=== PATIENT | male | born 1990 | race Caucasian/White ===

== ENCOUNTER 2023-01-24 18:28 | Emergency (ER) | payer SELFPAY ==
[2023-01-24 19:26] LABS: BASOPHILS PERCENT AUTO 0.6 % (0.0-1.5); EOSINOPHILS ABSOLUTE AUTO 0.1 K/uL (0.0-0.7); EOSINOPHILS PERCENT AUTO 2.6 % (0.0-7.0); HEMATOCRIT 44.9 % (38.0-50.0); HEMOGLOBIN 15.7 g/dL (13.0-17.0); LYMPHOCYTES ABSOLUTE AUTO 1.4 K/uL (0.6-2.4); LYMPHOCYTES PERCENT AUTO 29.9 % (16.0-40.0); MEAN CORPUSCULAR HEMOGLOBIN 30.7 pg (27.0-32.0); MEAN CORPUSCULAR VOLUME 87.9 fL (80.0-98.0); MONOCYTES ABSOLUTE AUTO 0.3 K/uL (0.0-0.8); MONOCYTES PERCENT AUTO 6.6 % (0.0-15.0); NEUTROPHILS ABSOLUTE AUTO 2.8 K/uL (1.4-5.7); NEUTROPHILS PERCENT AUTO 60.3 % (48.0-80.0); NRBC ABSOLUTE 0 K/uL; PLATELET COUNT,PLT 246 K/uL (150-400); RED BLOOD CELL COUNT 5.11 M/uL (4.50-5.90); WHITE BLOOD CELL COUNT,WBC 4.68 K/uL (4.0-11.0)
[2023-01-24 20:06] LABS: A/G RATIO 1.3 (0.9-1.6); ALBUMIN 4.3 g/dL (3.4-5.0); BILIRUBIN TOTAL 0.6 mg/dL (0.2-1.0); CALCIUM 8.8 mg/dL (8.5-10.1); CARBON DIOXIDE,CO2 31.1 mmol/L (21.0-32.0); EST CRCL DRUG DOSING (CG) 111.9 mL/min; POTASSIUM,K 3.7 mmol/L (3.5-5.1); PROTEIN TOTAL,TP 7.6 g/dL (6.4-8.2); TSH ULTRASENSITIVE 0.94 uIU/mL (0.36-3.74)
== END 2023-01-24 20:26 | disposition home or self-care (01) ==
LOC: MW.ED 18:28
DX: R07.2 Precordial pain (principal)
CPT/HCPCS: 36415; 71045; 71045-26; 80053; 84443; 84484; 85025; 93005; 93010; 99283; 99285